=== PATIENT | male | born 1995 | race American Indian/Alaskan Native ===

== ENCOUNTER 2016-09-13 16:35 | Emergency (ER) | payer OTHER ==
[2016-09-13 17:35] LABS: Bacteria,Urine 1+ /HPF (Negative); Bilirubin,Urine NEG (Negative); Blood,Urine NEG (Negative); Ketones,Urine NEG (Negative); Leukocyte Esterase,Urine MOD (Negative); Mucus,Urine FEW /HPF; Nitrite,Urine NEG (Negative); Protein,Urine <15 mg/dL mg/dL (Negative); Urobilinogen,Urine < 2.0 mg/dL (<2.0)
--- NOTE | 2016-09-13 21:49 | Emergency Department Report ---
HPI - General Chief Complaint: Urogenital-Male Time Seen by Provider: 09/13/16 21:30 - HPI HPI: He was a 21-year-old male presents to ED complaining of pain with urination a clear mucousy penile discharge 3 days. Patient states he is in a marked relationship with his 3 year fianc and had unprotected sex 3 days ago. He states he's had this similar symptoms in 2012 at 13 and both times it was STD chlamydia. Patient denies fever/nausea/vomiting/abdominal pain/chest pain/Scrotum or penile pain or swelling ED Past Medical Hx - Past Medical History Hx GERD: Yes Hx Psychiatric Treatment: Yes (DEPRESSION) - Surgical History Past Surgical History?: No - Social History Smoking Status: Current Every Day Smoker Substance Use Type: None - Medications Home Medications: Home Medications Medication Instructions Recorded Confirmed Last Taken Type Phenazopyridine [Pyridium] 100 mg PO TID #10 tab 09/13/16 Unknown Rx Sulfamethoxazole/Trimethoprim 1 each PO BID #14 tablet 09/13/16 Unknown Rx [Bactrim DS TAB] ED Review of Systems ROS: Stated complaint: CHLAMYDIA Other details as noted in HPI Constitutional: denies: chills, fever Eyes: denies: eye pain, eye discharge, vision change ENT: denies: ear pain, throat pain Respiratory: denies: cough, shortness of breath, wheezing Cardiovascular: denies: chest pain, palpitations Endocrine: no symptoms reported Gastrointestinal: denies: abdominal pain, nausea, vomiting, diarrhea Genitourinary: denies: urgency, dysuria Musculoskeletal: denies: back pain, joint swelling, arthralgia Skin: denies: rash, lesions Neurological: denies: headache, weakness, paresthesias Psychiatric: denies: anxiety, depression Hematological/Lymphatic: denies: easy bleeding, easy bruising Physical Exam - Physical Exam Vital Signs: Vital Signs 09/13/16 16:50 Temperature 98.5 F Pulse Rate 68 Respiratory 17 Rate Blood Pressure 103/61 O2 Sat by Pulse 99 Oximetry Physical Exam: GENERAL: Alert and oriented x3, no apparent distress, Normal Gait, atraumatic. HEAD: Head is normocephalic and a-traumatic. EYES: Extra ocular muscles are intact. Pupils are equal, round, and reactive to light and accommodation. LUNGS: Symetrical with respiration, No wheezing, no rales or crackles, CTAB. HEART: S1, S2 present, regular rate and rhythm without murmur, no rubs, no gallops. ABDOMEN: No organomegaly was noted,Positive bowel sounds, soft, and non- distended. . Nontender to palpation on all Quadrants, NO CVA tenderness. UROGENITAL: No scrotal mass, Scrotum non tender to palpation bilaterally, no hernia, no scars or penile discharge. Bilateral lymphadenopathy. Mildly tender to palpation SKIN: Warm and dry, No lesions, No ulceration or induration present. ED Course Vital Signs 09/13/16 16:50 Temperature 98.5 F Pulse Rate 68 Respiratory 17 Rate Blood Pressure 103/61 O2 Sat by Pulse 99 Oximetry ED Medical Decision Making - Medical Decision Making 21-year-old male presents with UTI and possible STD exposure ED course: Patient received STD treatment Urinalysis positive for bacteria, mucus, white blood cell. Discussed findings with patient. Assessments safe sex and STI Prevention. Discussed to return to call the ED 3 days for results of her current breathing chlamydia testing. Discussed follow-up with health Department or primary practice for further STD testing. Discussed UTI and treatment with Bactrim DS. he understands all instructions are given is in no acute distress vital signs are normal. Critical care attestation.: If time is entered above; I have spent that time in minutes in the direct care of this critically ill patient, excluding procedure time. ED Disposition Clinical Impression: Urethritis UTI (urinary tract infection) Qualifiers: Urinary tract infection type: acute cystitis Hematuria presence: with hematuria Qualified Code(s): N30.01 - Acute cystitis with hematuria Disposition: DISCHARGED TO HOME OR SELFCARE Is pt being admited?: No Does the pt Need Aspirin: No Condition: Stable Instructions: Nonspecific Urethritis in Men (ED), Urinary Tract Infection in Men (ED) Additional Instructions: All with PCP or health department further STD testing Take medication as discussed. Assessment from sex for 7-10 days while being treated. Prescriptions: Phenazopyridine [Pyridium] 100 mg PO TID #10 tab Sulfamethoxazole/Trimethoprim [Bactrim DS TAB] 1 each PO BID #14 tablet Referrals: PRIMARY CARE, [Primary Care Provider] - 3-5 Days Forms: STI Treatment and Prevention, Work/School Release Form(ED) Time of Disposition: 22:59
[2016-09-13] MEDS ORDERED: XYLOCAINE 1% MPF 5 mL INFILTRATI ONE (22:43)
[2016-09-13] MEDS ORDERED: ZITHROMAX PO ONE (22:43)
[2016-09-13] MEDS ORDERED: ROCEPHIN IM ONE (22:43)
[2016-09-13] MEDS ORDERED: FLAGYL PO ONE (22:43)
[2016-09-14 00:44] VITALS: BP 110/68
== END 2016-09-13 23:35 | disposition home or self-care (01) ==
LOC: ED 16:35
DX: N34.2 Other urethritis (principal); N30.01 Acute cystitis with hematuria; K21.9 Gastro-esophageal reflux disease without esophagitis; F32.9 Major depressive disorder, single episode, unspecified; F17.200 Nicotine dependence, unspecified, uncomplicated
CPT/HCPCS: 81001; 87591; 96372; 99283; J0696

== ENCOUNTER 2020-11-26 12:11 | Emergency (ER) | payer SELFPAY ==
[2020-11-26 14:59] VITALS: BP 125/64
--- NOTE | 2020-11-26 16:13 | Emergency Department Report ---
ED General Adult HPI - General Chief complaint: Dental/Oral Stated complaint: CHECK UP Time Seen by Provider: 11/26/20 15:04 Source: patient Mode of arrival: Ambulatory Limitations: No Limitations - History of Present Illness Initial comments: 25-year-old -[place] male patient without past medical history presents with complaints of pain beneath his tongue starting last night. Patient states the pain has been intermittent for the past 3 months, however last night the pain began to worsen with swelling. He states the pain typically worsens when his mouth is dry. He denies any difficulty swallowing, swelling of the tongue, fever/chills/sweats, or recent known sick contacts. He rates his current pain as a 7/10 in severity and denies trying any OTC medications for his symptoms. Patient is not currently following with an ENT specialist or a PCP. - Related Data Previous Rx's Medication Instructions Recorded Last Taken Type Phenazopyridine [Pyridium] 100 mg PO TID #10 tab 09/13/16 Unknown Rx Sulfamethoxazole/Trimethoprim 1 each PO BID #14 tablet 09/13/16 Unknown Rx [Bactrim DS TAB] Amoxicillin [Amoxicillin TAB] 875 mg PO BID 7 Days #14 tablet 03/31/18 Unknown Rx Clindamycin [Clindamycin CAP] 300 mg PO Q6H 10 Days #40 capsule 11/26/20 Unknown Rx Ibuprofen [Motrin 800 MG tab] 800 mg PO Q8HR PRN #20 tablet 11/26/20 Unknown Rx Allergies Allergy/AdvReac Type Severity Reaction Status Date / Time No Known Allergies Allergy Verified 09/13/16 16:48 ED Review of Systems ROS: Stated complaint: CHECK UP Other details as noted in HPI Constitutional: denies: chills, diaphoresis, fever, malaise, weakness ENT: denies: throat pain Respiratory: denies: cough, shortness of breath Gastrointestinal: denies: nausea, vomiting Skin: denies: change in color Hematological/Lymphatic: swollen glands ED Past Medical Hx - Past Medical History Previous Medical History?: Yes Hx GERD: Yes Hx Psychiatric Treatment: Yes (DEPRESSION) - Surgical History Past Surgical History?: No - Social History Smoking Status: Current Every Day Smoker Substance Use Type: Marijuana - Medications Home Medications: Home Medications Medication Instructions Recorded Confirmed Last Taken Type Phenazopyridine [Pyridium] 100 mg PO TID #10 tab 09/13/16 Unknown Rx Sulfamethoxazole/Trimethoprim 1 each PO BID #14 tablet 09/13/16 Unknown Rx [Bactrim DS TAB] Amoxicillin [Amoxicillin TAB] 875 mg PO BID 7 Days #14 tablet 03/31/18 Unknown Rx Clindamycin [Clindamycin CAP] 300 mg PO Q6H 10 Days #40 capsule 11/26/20 Unknown Rx Ibuprofen [Motrin 800 MG tab] 800 mg PO Q8HR PRN #20 tablet 11/26/20 Unknown Rx ED Physical Exam - General Limitations: No Limitations General appearance: alert, in no apparent distress - Head Head exam: Present: atraumatic, normocephalic - Eye Eye exam: Present: normal appearance. Absent: scleral icterus, conjunctival injection - Expanded ENT Exam Expanded Mouth exam: Present: other (Left submandibular gland swelling with mild erythema and tenderness to palpation; ) Teeth exam: Present: normal inspection Throat exam: Positive: normal inspection - Neck Neck exam: Present: full ROM, lymphadenopathy (Left submandibular) - Respiratory Respiratory exam: Absent: respiratory distress - Cardiovascular Cardiovascular Exam: Present: regular rate, normal rhythm - Neurological Exam Neurological exam: Present: alert, oriented X3 - Psychiatric Psychiatric exam: Present: normal affect, normal mood - Skin Skin exam: Present: warm, dry, intact, normal color. Absent: rash ED Course Vital Signs 11/26/20 14:57 Temperature 97.8 F Pulse Rate 59 L Respiratory 18 Rate Blood Pressure 125/64 O2 Sat by Pulse 100 Oximetry ED Medical Decision Making - Medical Decision Making 25-year-old -[place] male patient without past medical history presents with complaints of pain beneath his tongue starting last night. Patient states the pain has been intermittent for the past 3 months, however last night the pain began to worsen with swelling. He states the pain typically worsens when his mouth is dry. He denies any difficulty swallowing, swelling of the tongue, fever/chills/sweats, or recent known sick contacts. He rates his current pain as a 7/10 in severity and denies trying any OTC medications for his symptoms. Patient is not currently following with an ENT specialist or a PCP. On exam, there is swelling at the left submandibular gland with mild erythema and left submandibular lymphadenopathy. Suspect infected salivary gland and underlying salivary stone. Will treat with clindamycin. Recommend patient follows up with ENT for further evaluation of chronic pain. His vitals are normal, he is well-appearing, he is stable for discharge home. Discussed strict return precautions in detail with patient who verbalizes understanding. Patient verbalizes understanding of plan of care and denies any further questions at this time. Critical care attestation.: If time is entered above; I have spent that time in minutes in the direct care of this critically ill patient, excluding procedure time. ED Disposition Clinical Impression: Submandibular gland swelling Disposition: DC- TO HOME OR SELFCARE Is pt being admited?: No Condition: Stable Instructions: Salivary Gland Infection, Salivary Stone Prescriptions: Clindamycin [Clindamycin CAP] 300 mg PO Q6H 10 Days #40 capsule Ibuprofen [Motrin 800 MG tab] 800 mg PO Q8HR PRN #20 tablet PRN Reason: pain Referrals: VIOLET BHANDARI MD [Staff Physician] - 2-3 Days Forms: Work/School Release Form(ED)
== END 2020-11-26 17:55 | disposition home or self-care (01) ==
LOC: ED 12:11
DX: R59.0 Localized enlarged lymph nodes (principal); K21.9 Gastro-esophageal reflux disease without esophagitis; F32.9 Major depressive disorder, single episode, unspecified; F17.200 Nicotine dependence, unspecified, uncomplicated; F12.10 Cannabis abuse, uncomplicated
CPT/HCPCS: 99281